=== PATIENT | female | born 2000 | race Caucasian/White ===

== ENCOUNTER 2019-03-09 10:34 | Day surgery (SDC) | payer BC ==
[~2019-03-09] VITALS: Ht 157.5 cm; Wt 69.9 kg
[~2019-03-09 10:34] MED LIST: MOMENI; NAPR500EC; TRI-LINYAH1 EACH PO
--- NOTE | 2019-03-09 11:19 | NUR ---
03/09/19 Harmony Rea BEIR BLOCK STARTED IN THE RIGHT HAND WITH 20G IV CATHETER. RN FLUSHED BEIR BLOCK WITH 3ML NORMAL SALINE. PT TOLERATED BEIR BLOCK START WELL.
[2019-03-09] MEDS ORDERED: Norco 5-325 Ta1 EACH PO (19:30)
== END 2019-03-09 12:50 | disposition home or self-care (01) ==
LOC: ORSCSDS 10:34
PROVIDERS: Orthopaedic Surgery
PROC: 01N50ZZ Release Median Nerve, Open Approach (ICD-10-PCS; principal; 2019-03-09 12:40)
DX: G56.02 Carpal tunnel syndrome, left upper limb (principal)
CPT/HCPCS: J0690; J2250; J2405; J3010; J7120

== ENCOUNTER 2019-03-09 19:14 | Emergency (ER) | payer BC ==
[~2019-03-09] VITALS: Ht 157.5 cm; Wt 69.8 kg
[2019-03-09] MEDS ORDERED: Norco 5-325 Ta1 EACH PO (19:30)
== END 2019-03-09 21:21 | disposition home or self-care (01) ==
LOC: ER 19:14
DX: G89.18 Other acute postprocedural pain (principal); M79.642 Pain in left hand; M25.532 Pain in left wrist; Z79.899 Other long term (current) drug therapy
CPT/HCPCS: 29125; 99283-25; A9270-GY

== ENCOUNTER → 2019-04-06 | Outpatient (CLI) | payer BC ==
[~2019-04-06] MED LIST changes: +Norco 5-325 Ta1 EACH PO
[2019-04-06 11:30] LABS: BASOPHILS ABSOLUTE AUTO 0.04 K/mm3 (0.00-0.23); BASOPHILS PERCENT AUTO 1 % (0-2); EOSINOPHILS ABSOLUTE AUTO 0.07 K/mm3 (0.00-0.68); EOSINOPHILS PERCENT AUTO 1 % (0-6); Hematocrit 38.2 % (33.0-51.0); Hemoglobin 12.8 g/dL (11.5-16.0); IMMATURE GRAN ABSOLUTE AUTO 0.03 K/mm3 (0.00-0.10); IMMATURE GRAN PERCENT AUTO 0 % (0-1); LYMPHOCYTES ABSOLUTE AUTO 2.39 K/mm3 (0.84-5.20); LYMPHOCYTES PERCENT AUTO 33 % (21-46); MONOCYTES ABSOLUTE AUTO 0.38 K/mm3 (0.16-1.47); MONOCYTES PERCENT AUTO 5 % (4-13); Mean Corpuscular HGB Conc 33.5 g/dL (31.5-36.5); Mean Corpuscular Volume 86 fL (80-100); NEUTROPHILS ABSOLUTE AUTO 4.35 K/mm3 (1.96-9.15); NEUTROPHILS PERCENT AUTO 60 % (41-73); Platelet Count 277 K/mm3 (150-400); RDW Coefficient Variation 12.2 % (11.7-14.2); RDW Standard Deviation 38.8 fL (35.1-46.3); Red Blood Cell Count 4.42 M/mm3 (3.80-5.20); White Blood Cell Count 7.26 K/mm3 (4.00-11.30)
[2019-04-06 11:40] LABS: Alanine Aminotransfer (ALT/SGP 32 U/L (12-78); Albumin, Blood 3.9 g/dL (3.4-5.0); Blood Urea Nitrogen 14 mg/dL (8-24); Calcium, Blood 9.2 mg/dL (8.5-10.1); Chloride, Blood 101 mmol/L (98-108); Glomerular Filtration Rate >60 (60-); Glucose, Blood 90 mg/dL (70-99); Sodium, Blood 137 mmol/L (136-145)
[2019-04-06 12:02] LABS: Alk Phos 55 U/L (40-126); Anion Gap 11 mmol/L (6-16); Aspartate Aminotrans (AST/SGOT 24 U/L (12-37); Bilirubin, Total 0.3 mg/dL (0.1-1.0); Bun/Creatinine Ratio 17.5 (12.0-20.0); CO2, Blood 25 mmol/L (21-32); Total Protein, Blood 7.9 g/dL (6.4-8.2)
== END | disposition home or self-care (01) ==
LOC: LAB EV 11:24 → LAB SHORT 11:24
PROVIDERS: Physician Assistant
DX: R55 Syncope and collapse (principal)
CPT/HCPCS: 80053; 84443; 85025

== ENCOUNTER 2019-07-23 23:38 | Emergency (ER) | payer BC ==
[~2019-07-23] VITALS: Ht 167.6 cm; Wt 68.0 kg
[2019-07-24 00:04] LABS: Source, Urine Clean Catch
[2019-07-24 00:06] LABS: Bilirubin, Urine Neg (Neg); Blood, Urine Neg (Neg); Glucose Qualitative, Urine Neg (Neg); Ketones, Urine Neg (Neg); Leukocyte Esterase, Urine Neg (Neg); Nitrite, Urine Neg (Neg); Protein, Urine Neg (Neg); Urobilinogen, Urine 1+ (Normal)
[2019-07-24 00:15] LABS: Appearance, Urine Clear (Clear); Color, Urine Yellow (P-Yellow)
[2019-07-24 00:16] LABS: BASOPHILS ABSOLUTE AUTO 0.04 K/mm3 (0.00-0.23); BASOPHILS PERCENT AUTO 0 % (0-2); EOSINOPHILS ABSOLUTE AUTO 0.09 K/mm3 (0.00-0.68); EOSINOPHILS PERCENT AUTO 1 % (0-6); Hemoglobin 14.2 g/dL (11.5-16.0); IMMATURE GRAN ABSOLUTE AUTO 0.05 K/mm3 (0.00-0.10); IMMATURE GRAN PERCENT AUTO 0 % (0-1); LYMPHOCYTES ABSOLUTE AUTO 3.42 K/mm3 (0.84-5.20); LYMPHOCYTES PERCENT AUTO 26 % (21-46); MONOCYTES ABSOLUTE AUTO 0.71 K/mm3 (0.16-1.47); MONOCYTES PERCENT AUTO 5 % (4-13); Mean Corpuscular Volume 88 fL (80-100); Mean Platelet Volume 11.3 fL (9.1-12.4); NEUTROPHILS PERCENT AUTO 67 % (41-73); Platelet Count 316 K/mm3 (150-400); RDW Coefficient Variation 11.9 % (11.7-14.2); RDW Standard Deviation 38.5 fL (35.1-46.3); White Blood Cell Count 13.11 K/mm3 (4.00-11.30)
[2019-07-24 00:31] LABS: Alanine Aminotransfer (ALT/SGP 54 U/L (12-78); Albumin, Blood 4.4 g/dL (3.4-5.0); Albumin/Globulin Ratio 1.1 (0.8-1.8); Alk Phos 65 U/L (50-136); Anion Gap 10 mmol/L (6-16); Aspartate Aminotrans (AST/SGOT 50 U/L (12-37); Bilirubin, Total 0.4 mg/dL (0.1-1.0); Blood Urea Nitrogen 14 mg/dL (8-24); CO2, Blood 24 mmol/L (21-32); Calcium, Blood 9.6 mg/dL (8.5-10.1); Chloride, Blood 107 mmol/L (98-108); Creatinine, Blood 0.78 mg/dL (0.40-1.00); Globulin, Blood 3.9 g/dL (2.2-4.0); Glomerular Filtration Rate >60 (60-); Glucose, Blood 109 mg/dL (70-99); Magnesium, Blood 1.8 mg/dL (1.6-2.4); Potassium, Blood 3.9 mmol/L (3.5-5.5); Sodium, Blood 141 mmol/L (136-145); Total Protein, Blood 8.3 g/dL (6.4-8.2)
[2019-07-24] MEDS ORDERED: ONDA4ODT MM (00:58)
== END 2019-07-24 01:20 | disposition home or self-care (01) ==
LOC: ER 23:38
PROVIDERS: Emergency Medicine
DX: R10.13 Epigastric pain (principal); Z79.899 Other long term (current) drug therapy
CPT/HCPCS: 36415; 80053; 81003; 81025; 83690; 83735; 85025; 96374; 99284; A9270-GY; J2405

== ENCOUNTER 2019-08-12 01:37 | Observation (INO) | payer BC, OTHER ==
[~2019-08-12] VITALS: Ht 160 cm; Wt 72.6 kg
[~2019-08-12 01:37] MED LIST changes: +ONDA4ODT MM
[2019-08-12] MEDS ORDERED: OMEP20ER PO (01:54)
[2019-08-12] MEDS ORDERED: Citalopram HBr10 MG PO (01:54)
[2019-08-12 02:03] LABS: Source, Urine Voided
[2019-08-12 02:11] LABS: BASOPHILS ABSOLUTE AUTO 0.04 K/mm3 (0.00-0.23); BASOPHILS PERCENT AUTO 0 % (0-2); EOSINOPHILS PERCENT AUTO 1 % (0-6); Hematocrit 38.4 % (33.0-51.0); Hemoglobin 12.8 g/dL (11.5-16.0); IMMATURE GRAN ABSOLUTE AUTO 0.02 K/mm3 (0.00-0.10); IMMATURE GRAN PERCENT AUTO 0 % (0-1); LYMPHOCYTES ABSOLUTE AUTO 3.54 K/mm3 (0.84-5.20); LYMPHOCYTES PERCENT AUTO 38 % (21-46); MONOCYTES ABSOLUTE AUTO 0.63 K/mm3 (0.16-1.47); MONOCYTES PERCENT AUTO 7 % (4-13); Mean Corpuscular HGB Conc 33.3 g/dL (31.5-36.5); Mean Corpuscular Volume 87 fL (80-100); NEUTROPHILS ABSOLUTE AUTO 5.08 K/mm3 (1.96-9.15); NEUTROPHILS PERCENT AUTO 54 % (41-73); Platelet Count 277 K/mm3 (150-400); RDW Coefficient Variation 12.1 % (11.7-14.2); RDW Standard Deviation 38.6 fL (35.1-46.3); Red Blood Cell Count 4.42 M/mm3 (3.80-5.20); White Blood Cell Count 9.41 K/mm3 (4.00-11.30)
[2019-08-12 02:11] LABS: Appearance, Urine Hazy (Clear); Bilirubin, Urine Neg (Neg); Blood, Urine Neg (Neg); Color, Urine Yellow (P-Yellow); Glucose Qualitative, Urine Neg (Neg); Ketones, Urine Neg (Neg); Leukocyte Esterase, Urine Neg (Neg); Nitrite, Urine Neg (Neg); Protein, Urine Neg (Neg); Urobilinogen, Urine 1+ (Normal)
[2019-08-12 02:17] LABS: Amorphous Mod (0-Heavy); Bacteria Mod /hpf; Red Blood Cells, Urine 0-2 /hpf (0-2); Squamous Epithelial Cells Few /hpf (Few); White Blood Cells, Urine 0-2 /hpf (0-5)
[2019-08-12 02:28] LABS: Alanine Aminotransfer (ALT/SGP 81 U/L (12-78); Albumin/Globulin Ratio 1.1 (0.8-1.8); Alk Phos 59 U/L (50-136); Anion Gap 8 mmol/L (6-16); Aspartate Aminotrans (AST/SGOT 50 U/L (12-37); Bilirubin, Total 0.4 mg/dL (0.1-1.0); Blood Urea Nitrogen 10 mg/dL (8-24); Bun/Creatinine Ratio 11.1 (12.0-20.0); CO2, Blood 26 mmol/L (21-32); Calcium, Blood 9.1 mg/dL (8.5-10.1); Chloride, Blood 109 mmol/L (98-108); Globulin, Blood 3.6 g/dL (2.2-4.0); Glomerular Filtration Rate >60 (60-); Glucose, Blood 101 mg/dL (70-99); Potassium, Blood 3.5 mmol/L (3.5-5.5); Sodium, Blood 143 mmol/L (136-145); Total Protein, Blood 7.6 g/dL (6.4-8.2)
--- NOTE | 2019-08-12 06:18 | NUR ---
PT NEW ADMIT THIS AM FOR ACUTE MONIE. PT VSS SINCE ARRIVING TO FLOOR. PT REP PAIN ALICIA 1-10/26, DENIED N/V. PT NPO FOR PLAN FOR OR TODAY. IVF CONT. WILL CONT TO MONITOR UNTIL REP GIVEN TO ONCOMING RN.
--- NOTE | 2019-08-12 13:59 | NUR ---
PT TO DAY SURGERY
--- NOTE | 2019-08-12 14:12 | NUR ---
History, Chart, Medications and Allergies reviewed before start of procedure. Lungs clear T/O to Auscultation. Patient confirms NPO status and agrees with scheduled surgery. Pre-Op teaching done. Pt verbalizes understanding.
--- NOTE | 2019-08-12 14:38 | NUR ---
RECEIVED REPORT FROM JASKARAN Levy RN AND ASSUMED CARE. TAPE TO LEFT EARLOBE, PT SIGNED CONSENT FOR JEWELRY REMOVAL.
--- NOTE | 2019-08-12 14:39 | NUR ---
JAIR SHIFT SUMMARY PT HAS DONE WELL PRIOR TO GOING TO SURGERY. DENIED PAIN/NAUSEA. AMBULATED IND IN ROOM. DENIED NEEDS.
--- NOTE | 2019-08-12 15:27 | NUR ---
08/12/19 1527 Navdeep Garza PATIENT ON SCHEDULED ANTIBIOTICS
[2019-08-12] MEDS ORDERED: HYDR1TAB94 PO (17:00)
[2019-08-12] MEDS ORDERED: Advil200 M1 PO (17:01)
--- NOTE | 2019-08-13 06:50 | NUR ---
SHIFT SUMMARY: PT POD #1 FOR LAP MONIE. GAUZE SITES CDI. ABD WITH MODERATE DISTENTION. PT REPORTS PASSING FLATUS. VOIDING WELL. UP IN ROOM INDEPENDENTLY. ALICIA REG DIET. PAIN MANAGED WITH ORAL MEDS PER EMAR. PLAN FOR DISCHARGE HOME TODAY.
--- NOTE | 2019-08-13 10:15 | NUR ---
DISCHARGE: PT EATING AND DRINKING, VOIDING, PASSING GAS. PT REPORTS PAIN CONTROLLED ON PO PAIN MEDICATIONS. PT REPORTS UNDERSTANDING OF DISCHARGE INSTRUCTIONS. FAMILY GIVING PT RIDE HOME. DISCUSSED PHARMACY R[facility] A[facility] OPEN UNTIL 15:OO PER NURSING COMPUTER PROJECT MANAGER. PT SENT WITH SCRIPT AND BELONGINGS. IV OUT WNL, REPORTS NO OTHER IV'S IN PLACE.
== END 2019-08-13 10:19 | disposition home or self-care (01) ==
LOC: ER 01:37 → SURS 01:38
PROVIDERS: Emergency Medicine; Surgery; ADMIT Surgery
PROC: 0FT44ZZ Resection of Gallbladder, Percutaneous Endoscopic Approach (ICD-10-PCS; principal; 2019-08-12 13:30)
PROC: BF121ZZ Fluoroscopy of Gallbladder using Low Osmolar Contrast (ICD-10-PCS; principal; 2019-08-12 13:30)
DX: K80.12 Calculus of gallbladder with acute and chronic cholecystitis without obstruction (principal); F41.9 Anxiety disorder, unspecified; Z79.899 Other long term (current) drug therapy
CPT/HCPCS: 36415; 74300; 76705; 80053; 81001; 83690; 84702; 85025; 87086; 88304; 96361; 96365; 96367; 96375; 99285-25; A9270-GY; C1729; G0378; J0694; J1100; J1610; J1885; J2250; J2405; J2543; J2704; J3010; J7030; J7120

== ENCOUNTER → 2019-10-29 | Outpatient (CLI) | payer BC, OTHER ==
[~2019-10-29] MED LIST changes: +Advil200 M1 PO; +Citalopram HBr10 MG PO; +HYDR1TAB94 PO; +OMEP20ER PO
[2019-10-29 13:37] LABS: BASOPHILS ABSOLUTE AUTO 0.05 K/mm3 (0.00-0.23); BASOPHILS PERCENT AUTO 1 % (0-2); EOSINOPHILS ABSOLUTE AUTO 0.11 K/mm3 (0.00-0.68); EOSINOPHILS PERCENT AUTO 1 % (0-6); Hematocrit 42.6 % (33.0-51.0); Hemoglobin 14.3 g/dL (11.5-16.0); IMMATURE GRAN ABSOLUTE AUTO 0.02 K/mm3 (0.00-0.10); IMMATURE GRAN PERCENT AUTO 0 % (0-1); LYMPHOCYTES ABSOLUTE AUTO 2.37 K/mm3 (0.84-5.20); LYMPHOCYTES PERCENT AUTO 30 % (21-46); MONOCYTES ABSOLUTE AUTO 0.41 K/mm3 (0.16-1.47); MONOCYTES PERCENT AUTO 5 % (4-13); Mean Corpuscular HGB 29.1 pg (26.0-34.0); Mean Corpuscular HGB Conc 33.6 g/dL (31.5-36.5); Mean Corpuscular Volume 87 fL (80-100); Mean Platelet Volume 11.3 fL (9.1-12.4); NEUTROPHILS ABSOLUTE AUTO 4.95 K/mm3 (1.96-9.15); NEUTROPHILS PERCENT AUTO 63 % (41-73); Platelet Count 315 K/mm3 (150-400); RDW Coefficient Variation 12.1 % (11.7-14.2); RDW Standard Deviation 38.5 fL (35.1-46.3); Red Blood Cell Count 4.91 M/mm3 (3.80-5.20); White Blood Cell Count 7.91 K/mm3 (4.00-11.30)
[2019-10-29 13:47] LABS: Alanine Aminotransfer (ALT/SGP 72 U/L (12-78); Albumin, Blood 4.4 g/dL (3.4-5.0); Albumin/Globulin Ratio 1.1 (0.8-1.8); Alk Phos 67 U/L (40-126); Anion Gap 11 mmol/L (6-16); Aspartate Aminotrans (AST/SGOT 35 U/L (12-37); Bilirubin, Total 0.3 mg/dL (0.1-1.0); Blood Urea Nitrogen 6 mg/dL (8-24); Bun/Creatinine Ratio 7.6 (12.0-20.0); CO2, Blood 24 mmol/L (21-32); Calcium, Blood 9.2 mg/dL (8.5-10.1); Chloride, Blood 105 mmol/L (98-108); Creatinine, Blood 0.79 mg/dL (0.40-1.00); Globulin, Blood 3.9 g/dL (2.2-4.0); Glomerular Filtration Rate >60 (60-); Glucose, Blood 130 mg/dL (70-99); Potassium, Blood 3.4 mmol/L (3.5-5.5); Sodium, Blood 140 mmol/L (136-145); Total Protein, Blood 8.3 g/dL (6.4-8.2)
== END | disposition home or self-care (01) ==
LOC: LAB SHORT 13:31 → LAB EV 13:31
PROVIDERS: Physician Assistant
DX: R10.9 Unspecified abdominal pain (principal)
CPT/HCPCS: 80053; 83690; 85025

== ENCOUNTER → 2023-04-01 | Outpatient (CLI) | payer BC ==
[~2023-04-01] MED LIST changes: +SERT50
== END ==
LOC: LAB 16:27 → LAB SHORT 16:27
PROVIDERS: Family Medicine
DX: Z01.419 Encounter for gynecological examination (general) (routine) without abnormal findings (principal)
CPT/HCPCS: G0145

== ENCOUNTER 2023-06-17 07:54 | Day surgery (SDC) | payer BC ==
[~2023-06-17] VITALS: Ht 160 cm; Wt 80.5 kg
[2023-06-17] MEDS ORDERED: PROG100 PO (08:28)
[2023-06-17] MEDS ORDERED: BUTALB-ACETAMI1 EAC6 PO (08:29)
--- NOTE | 2023-06-17 11:10 | NUR ---
06/17/23 1110 DOMENICO LIRIANO PAIN CURRENTLY 3-12/24. PT EATING AND DRINKING W/O DIFF. SISTER AT HER SIDE. PT JUST RELAXING IN THE RECLINER. DENIES NAUSEA.
[2023-06-17 11:21] VITALS: BP 149/111
== END 2023-06-17 11:35 | disposition home or self-care (01) ==
LOC: ORSCSDS 07:54
PROVIDERS: Orthopaedic Surgery
PROC: 01N50ZZ Release Median Nerve, Open Approach (ICD-10-PCS; principal; 2023-06-17 09:30)
DX: G56.01 Carpal tunnel syndrome, right upper limb (principal)
CPT/HCPCS: A9270; J0690; J2250; J2704; J3010; J7120